=== PATIENT | male | born 1990 ===

== ENCOUNTER 2016-11-27 11:32 | Emergency (ER) | payer BC ==
[2016-11-27] MEDS ORDERED: Fluorescein Sodium TOPICAL* 1 MG TEST ONE (12:20)
[2016-11-27] MEDS ORDERED: BSS OPTH.SOL* BTL ONE (12:21)
[2016-11-27] MEDS ORDERED: Tetracaine 0.5% OPTH.SOL 15ML* BTL ONE (12:21)
[2016-11-27] MEDS ORDERED: Ketorolac INJ* 60 MG/2 ML VIAL IM ONE (12:51)
--- NOTE | 2016-11-27 12:59 | UC ---
Eye Complaint HPI - HPI Summary HPI Summary: TOOK CONTACT LENSES OUT YESTERDAY AND BEGAN TO HAVE RIGHT EYE PAIN. TODAY WORSE WITH TEARING AND DISCOMFORT. NO RASHES. NO FEVER. - History of Current Complaint Chief Complaint: UCEye Stated Complaint: EYE ISSUE Time Seen by Provider: 11/27/16 12:19 Hx Obtained From: Patient Onset/Duration: Gradual Onset, Lasting Days, Still Present Severity Initially: Mild Severity Currently: Moderate Location of Injury: Conjunctiva Character: Dull Aggravating Factor(s): Eye Drops Associated Signs And Symptoms: Positive: Photophobia, Drainage (Clear) - Risk Factors Penetrating Injury Risk Factor: Negative Acute Glaucoma Risk Factors: Negative Optic Artery Occlusion Risk Factors: Negative - Allergies/Home Medications Allergies/Adverse Reactions: Allergies Allergy/AdvReac Type Severity Reaction Status Date / Time No Known Allergies Allergy Verified 11/27/16 11:55 PMH/Surg Hx/FS Hx/Imm Hx Previously Healthy: Yes Endocrine History Of: Denies: Diabetes, Thyroid Disease Cardiovascular History Of: Denies: Cardiac Disorders, Hypertension Respiratory History Of: Denies: COPD, Asthma GI/ History Of: Denies: Ulcer - Surgical History Surgical History: None - Family History Known Family History: Negative: Diabetes - Social History Occupation: Employed Full-time Lives: With Family Alcohol Use: Occasionally Substance Use Type: None Smoking Status (MU): Never Smoked Tobacco Review of Systems Constitutional: Negative Skin: Negative Eyes: Drainage - RIGHT EYE, Photophobia - RIGHT EYE ENT: Negative Respiratory: Negative Cardiovascular: Negative Gastrointestinal: Negative Genitourinary: Negative Motor: Negative Neurovascular: Negative Musculoskeletal: Negative Neurological: Negative Psychological: Negative All Other Systems Reviewed And Are Negative: Yes Physical Exam Triage Information Reviewed: Yes Appearance: Well-Appearing, No Pain Distress, Well-Nourished Vital Signs: Initial Vital Signs Temp 98.4 F 11/27/16 11:53 Pulse 65 11/27/16 11:53 Resp 16 11/27/16 11:53 BP 139/94 11/27/16 11:53 Pulse Ox 100 11/27/16 11:53 Vital Signs Reviewed: Yes Eyes: Positive: Discharge ENT: Positive: Normal ENT inspection, Hearing grossly normal, Pharynx normal, TMs normal, Other: - FLUORESCEIN UPTAKE RIGHT EYE FROM 11 OCLOCK TO 1 OCLOCK Dental Exam: Normal Neck exam: Normal Neck: Positive: Supple, Nontender, No Lymphadenopathy Respiratory Exam: Normal Respiratory: Positive: Chest non-tender, Lungs clear, Normal breath sounds, No respiratory distress, No accessory muscle use Cardiovascular Exam: Normal Cardiovascular: Positive: RRR, No Murmur, Pulses Normal Abdominal Exam: Normal Abdomen Description: Positive: Nontender, No Organomegaly Musculoskeletal Exam: Normal Musculoskeletal: Positive: Strength Intact Neurological Exam: Normal Psychological Exam: Normal Psychological: Positive: Normal Response To Family Skin Exam: Normal Eye Complaint Course/Dx - Differential Dx/Diagnosis Differential Diagnosis/HQI/PQRI: Conjunctivitis, Corneal Abrasion, Orbital Cellulitis Provider Diagnoses: RIGHT CORNEAL ABRASION Discharge - Discharge Plan Condition: Stable Disposition: HOME Prescriptions: Tobramycin 0.3% OPHTH.AMANDA* 1 drop RIGHT EYE Q4H #1 btl Patient Education Materials: Corneal Abrasion (ED), Conjunctivitis (ED) Referrals: [facility] [place] [facility] [Outside] No Primary Care Phys,NOPCP [Primary Care Provider] -
== END 2016-11-27 13:22 | disposition home or self-care (01) ==
LOC: UCEAST 11:32
DX: S05.01XA Injury of conjunctiva and corneal abrasion without foreign body, right eye, initial encounter (principal); X58.XXXA Exposure to other specified factors, initial encounter; Y93.9 Activity, unspecified; Y92.9 Unspecified place or not applicable; R03.0 Elevated blood-pressure reading, without diagnosis of hypertension
CPT/HCPCS: 96372; 99202; A9270-GY; G0463; J1885